=== PATIENT | female | born 2000 | race Caucasian/White ===

== ENCOUNTER 2018-02-21 11:09 | Emergency (ER) | payer OTHER ==
[~2018-02-21] VITALS: Ht 165.1 cm; Wt 62.0 kg
[2018-02-21 11:13] VITALS: BP 149/80; PULSE 45; RESP 18; TEMP 97.8; O2SAT 100
[2018-02-21 11:57] LABS: BACTERIA, URINE MOD /hpf; BILIRUBIN, URINE NEG (NEG); BLOOD, URINE NEG (NEG); GLUCOSE,URINE NEG (NEG); KETONE, URINE NEG (NEG); MUCUS URINE FEW /lpf (OCC); NITRITE,URINE NEG (NEG); PH, URINE 7.5 (5.0-8.5); SQUAMOUS EPITHELIAL CELL URINE 6 /hpf (0-5); TRANSITIONAL EPI CELLS, URINE <1 /hpf; URINE COLOR YELLOW (YELLW/STRAW); URINE LEUKOCYTE ESTERASE MOD (NEG); WHITE BLOOD CELL CLUMPS RARE
--- NOTE | 2018-02-21 11:57 | PD ---
HPI Chief Complaint: Complaint Time Seen by Provider: 11:38 Travel History International Travel<30 days: No Contact w/Intl Traveler<30days: No Traveled to known affect area: No History of Present Illness HPI Patient presents to the emergency department complaining of 2 day history of bilateral flank pain that is now worse on the right side. She has had a history of urinary tract infections before. She reports dysuria and urinary frequency. No trauma or injury. She denies fever, chills, nausea, vomiting, constipation, diarrhea, or hematuria. She has not had sexual activity in the last 40 days because of morphine lives in [place]. She denies history of sexually transmitted disease or current vaginal discharge. She reports diffuse lower abdominal pain. Last menstrual period January 10. Your test done in triage negative [facility] Past Medical History Reproductive: Yes (OVARIAN CYST) ?: Not LMP: 01/10/18 Past Surgical History Surgical History: No Previous Surgery Family History Family History: Negative Social History Alcohol Use: Yes (occassionally) Tobacco Use: No Substance Use: No Allergies-Medications (Allergen,Severity, Reaction): Coded Allergies: sulfamethoxazole (Verified Allergy, Unknown, 02/21/18) trimethoprim (Verified Allergy, Unknown, 02/21/18) Reported Meds & Prescriptions Reported Meds & Active Scripts Active Cefdinir 300 Mg Cap 300 Mg PO BID 10 Days Review of Systems Except as stated in HPI: all other systems reviewed are Neg Physical Exam Narrative GENERAL: No acute distress. SKIN: Focused skin assessment warm/dry. HEAD: Atraumatic. Normocephalic. EYES: Extraocular muscles intact. No scleral icterus. No injection or drainage. ENT: No nasal bleeding or discharge. Mucous membranes pink and moist. NECK: Supple, full range of motion. CARDIOVASCULAR: Regular rate and rhythm. No murmur appreciated. RESPIRATORY: No accessory muscle use. Clear to auscultation. Breath sounds equal bilaterally. GASTROINTESTINAL: Abdomen soft, slight tenderness to palpation left upper quadrant, nondistended. Hepatic and splenic margins not palpable. Right CVA tenderness. MUSCULOSKELETAL: No obvious deformities. No clubbing. No cyanosis. No edema. NEUROLOGICAL: Awake and alert. No obvious cranial nerve deficits. Motor grossly within normal limits. Normal speech. PSYCHIATRIC: Appropriate mood and affect; insight and judgment normal. Data Data Last Documented VS Vital Signs Date Time Temp Pulse Resp B/P (MAP) Pulse Ox O2 Delivery O2 Flow Rate FiO2 02/21/18 11:13 97.8 45 18 149/80 (103) 100 Orders Orders Urinalysis - C+S If Indicated (02/21/18 11:15) Ed Urine Pregnancytest Poc (02/21/18 11:15) Urine Culture (02/21/18 11:22) Labs Laboratory Tests Test 02/21/18 11:22 Urine Color YELLOW Urine Turbidity HAZY Urine pH 7.5 Urine Specific [place] 1.015 Urine Protein TRACE mg/dL Urine Glucose (UA) NEG mg/dL Urine Ketones NEG mg/dL Urine Occult Blood NEG Urine Nitrite NEG Urine Bilirubin NEG Urine Urobilinogen LESS THAN 2.0 MG/DL Urine Leukocyte Esterase MOD Urine RBC 2 /hpf Urine WBC 49 /hpf Urine WBC Clumps RARE Urine Squamous Epithelial Cells 6 /hpf Urine Transitional Epithelial Cells <1 /hpf Urine Bacteria MOD /hpf Urine Mucus FEW /lpf Microscopic Urinalysis Comment CULTURE INDICATED MDM Medical Decision Making Medical Screen Exam Complete: Yes Emergency Medical Condition: Yes Interpretation(s) Urinalysis suggestive of urinary tract infection. Culture pending. Differential Diagnosis Pyelonephritis, urinary tract infection, kidney stone Narrative Course Patient presents with a history of UTI and 2 day history of bilateral flank pain , dysuria, urinary frequency. Urine sent for and urinalysis. Suggest urinary tract infection and cultures pending. Patient is allergic to Bactrim; therefore, patient will be discharged with Omnicef 300 mg p.o. twice daily 10 days. Diagnosis Primary Impression: Urinary tract infection Qualified Codes: N30.00 - Acute cystitis without hematuria Patient Instructions: General Instructions Additional Instructions: 1. Followup with primary care physician. 2. Return to ER immediately for fever, vomiting, abdominal pain, or for any new/worrisome/worsening symptoms. Med/Other Pt SpecificInfo: Prescription(s) given Scripts Cefdinir (Cefdinir) 300 Mg Cap 300 MG PO BID for Infection for 10 Days, #20 CAP 0 Refills Prov: Leanna Cardoza MD 02/21/18 Disposition: 01 DISCHARGE HOME Condition: Stable Leanna Cardoza MD Feb 21, 2018 11:57
[2018-02-21] MEDS ORDERED: CEFD300C PO (12:06)
== END 2018-02-21 12:20 | disposition home or self-care (01) ==
LOC: NEPA 11:09
DX: N30.00 Acute cystitis without hematuria (principal); B95.7 Other staphylococcus as the cause of diseases classified elsewhere; Z16.19 Resistance to other specified beta lactam antibiotics; Z16.11 Resistance to penicillins
CPT/HCPCS: 81001; 84703; 87077; 87086; 87186; 99283